=== PATIENT | male | born 1955 | race Caucasian/White ===

== ENCOUNTER 2019-11-11 17:15 | Emergency (ER) | payer OTHER, SELFPAY ==
--- NOTE | 2019-11-11 17:16 | XRR_ITS ---
PROCEDURE INFORMATION: Exam: XR Chest, 1 View Exam date and time: 11/11/2019 8:51 PM Age: 64 years old Clinical indication: Cough TECHNIQUE: Imaging protocol: XR of the chest Views: 1 view. COMPARISON: No relevant prior studies available. FINDINGS: Lungs: The lungs are clear bilaterally. Pulmonary vasculature within normal limits. Pleural space: No visible pneumothorax or pleural effusion. Heart/Mediastinum: Heart size within normal limits. Thoracic aorta is mildly tortuous. Bones/joints: No emergent findings identified. XR/XR chest 1V portable [id number] IMPRESSION: 1. No radiographic findings of acute cardiopulmonary disease.
[2019-11-11 18:13] VITALS: BP 164/93; PULSE 79; RESP 16; TEMP 36.7; O2SAT 96; BMI 35.6
--- NOTE | 2019-11-11 21:01 | ED_ITS ---
HPI - URI/Sore Throat General: Chief Complaint: Upper Respiratory Infection Stated Complaint: COVID SYMPTOMS Time Seen by Provider: 11/11/19 20:33 Source: patient Mode of arrival: ambulatory Limitations: no limitations History of Present Illness: HPI Narrative: [place] is a very nice 64-year-old male who comes in complaining of chest congestion, loss of sense of taste, loss of sense of smell and productive cough. States his cough is productive of discolored sputum. He denies any fevers or chills. He denies any chest pain or nausea or vomiting. Patient states he is not had any known covert exposures. He denies any abdominal pain or chest pain. He is unaware of anything that makes his symptoms better or worse and he has not tried anything for this prior to arrival here. Associated symptoms: Deny abdominal pain, chills, chest pain, diarrhea, ear or mastoid pain, fever(s), headache(s), nausea or vomiting Review of Systems Const: Denies: fever(s), chills, body aches, fatigue, malaise or diaphoresis Eyes: Denies: change in vision, blurry vision, photophobia, eye discomfort, eye discharge, eye redness or yellow eyes ENMT: Reports: nasal discharge; Denies: throat pain, odynophagia, hoarseness, swelling of lips/tongue, ear or mastoid pain, ear discharge or change in hearing Card: Denies: chest pain, palpitations, irregular heart rhythm, edema, lightheadedness, syncope, pre-syncope, dyspnea on exertion or orthopnea Resp: Reports: change in phlegm color; Denies: dyspnea, productive cough, non-productive cough, wheezing, hemoptysis or chest congestion GI: Denies: abdominal pain, nausea, vomiting, hematemesis, coffee ground emesis, heartburn, diarrhea, constipation, GI cramping, hematochezia or melena : Denies: flank pain, dysuria, urinary frequency, urinary urgency or hematuria Musc: Denies: neck pain, back pain, extremity pain, extremity swelling, joint pain, joint swelling, joint redness, joint warmth or joint stiffness Skin/Breast: Denies: rash, pruritus, erythema, skin pain or skin tenderness Neuro: Denies: headache(s), numbness in extremities, weakness in extremities, sensory changes, lack of coordination, difficulty walking, dizziness, vertigo, confusion, Slurred speech present or seizure-like activity Luis Manuel/Lymph: Denies: easy bruising, easy bleeding, petechiae, purpura or enlarged lymph nodes All/Imm: Denies: urticaria, throat swelling, tongue swelling, facial swelling or acute wheezing PFSH ED PFSH: Medical History Atrial fibrillation Diabetes HTN (hypertension) Obesity (BMI 35.0-39.9 without comorbidity) KINSEY on CPAP Presence of Watchman left atrial appendage closure device Surgical History H/O breast surgery Previous back surgery S/P hip replacement 2019 S/P prostatectomy S/P wrist surgery Status post catheter ablation of atrial fibrillation Family History Other Diabetes Hypertension Denies family history of Stroke Social History Smoking and tobacco status: former smoker Quit status (tobacco): has quit using tobacco Year quit tobacco: 20 years prior Alcohol intake: current Alcohol intake frequency: holidays/special occasions only Substance/Drug Use: never Physical Exam Const: COMMON NORMALS: no acute distress, patient oriented x3, no limitations and alert GENERAL APPEARANCE: cooperative HENMT: COMMON NORMALS: normocephalic, atraumatic, external ears normal, EAC's normal and Normal external nose present HEAD & SCALP: normal to inspection, normocephalic and atraumatic FACE & SINUS: normal facial exam and face symme tric NOSE: Normal external nose present and Normal nares present EXTERNAL EAR: Yes external ears normal EXTERNAL AUDITORY CANAL: EAC's normal MOUTH: Normal oral and palatal mucosa present, lip normal and tongue normal Eye: COMMON NORMALS: Equal, round and reactive pupils present and conjunctivae normal GENERAL EYE: appearance normal, both eyes and all related structures ALIGNMENT: Yes alignment normal PERIORBITAL: periorbital findings normal EYELID: eyelids normal CONJUNCTIVA: Yes conjunctivae normal SCLERA: sclerae normal PUPIL: Yes Equal, round and reactive pupils present Neck/C-Spine: COMMON NORMALS: full ROM, no lymphadenopathy, supple, no meningeal signs and no JVD GENERAL: Yes normal visual inspection and Yes trachea midline Chest: COMMONS NORMALS: normal inspection of the chest and normal palpation of entire chest wall Resp: COMMON NORMALS: normal respiratory effort, No retractions, No use of acc essory muscles and clear to auscultation bilaterally EFFORT & INSPECTION: Yes able to speak in complete sentences and Yes symmetric chest movement AUSCULTATION: clear to auscultation bilaterally, no crackles, no rales, no rhonchi and no wheezes Cardio: COMMON NORMALS: no JVD, regular rate, regular rhythm, S1 normal heart sound present and S2 normal heart sound present RATE: regular rate RHYTHM: regular rhythm HEART SOUNDS: S1 normal heart sound present, S2 normal heart sound present, no click, no gallops, no murmurs and no rubs GI: COMMON NORMALS: Soft to palpation and No hepatosplenomegaly present PALPATION: Yes Soft to palpation, No Tenderness to palpation present (GI), No Guarding due to palpation present (GI), No Rigid due to palpation, Yes No hepa tosplenomegaly present, No Hernia present, No Palpable mass present and No Pulsatile mass present : COMMON NORMALS: Yes no CVA tenderness BLADDER/KIDNEY EXAM: Yes no CVA tenderness Back/Pelvis: COMMON NORMALS: no CVA tenderness, thoracic and lumbar spine normal to inspection, no thoracic nor lumbar tenderness and thoraco-lumbar ROM normal Extremity: COMMON NORMALS: normal to inspection, full ROM, capillary refill normal, no joint enlargement, no clubbing, cyanosis or edema and no calf tenderness Neuro: COMMON NORMALS: patient oriented x3, CN's II-XII intact bilaterally, moves all extremities, no focal motor deficits and no sensory deficits noted SENSORIUM/ORIENTATION: Yes alert MENINGEAL SIGNS: Yes no meningeal signs SPEECH: speech normal Psych: COMMON NORMALS: mental status grossly normal, Normal thought process present, cooperative, normal affect, speech normal and activity/motor behavior normal SPEECH: Yes normal speech THOUGHT PROCESS: Normal thought process present Skin: COMMON NORMALS: no rashes or lesions noted, turgor normal, no jaundice, no petechiae and no mottling GENERAL SKIN EXAM: no rashes or lesions noted and turgor normal Course Vital Signs: Vital signs: Vital Signs Temperature 98.1 F 11/11/19 18:13 Pulse Rate 79 11/11/19 18:13 Respiratory Rate 16 11/11/19 18:13 Blood Pressure 164/93 11/11/19 18:13 Pulse Oximetry 96 11/11/19 18:13 MDM - URI/Sore Throat MDM Narrative: Medical decision making narrative: Patient shows no sign or symptom of pneumonia here. He does have signs and symptoms consistent with COVID. He appears otherwise healthy and wants to go home. I will place him on antibiotics for bronchitis and a covert test was sent. He understands for reasons to return. I discussed with him at length that increasing shortness of breath, low pulse ox and he will get a pulse oximeter before going home that he will need to return here for recheck. Imaging Data^: CXR: Attestation: I personally reviewed and interpreted this imaging study as follows: My impression: No acute cardiopulmonary findings. Discharge Plan Discharge Patient Disposition: Home Clinical Impression: Viral infection, Bronchitis Upper respiratory infection Qualifiers: URI type: unspecified viral URI Qualified Code(s): J06.9 - Acute upper respiratory infection, unspecified Condition: Stable Prescriptions: New Zithromax Z-Arturo 250 mg tablet See Rx Instructions .ROUTE .COMPLEX Qty: 6 RF: 0 Zofran 4 mg tablet 4 mg PO Q6H PRN (Reason: nausea and vomiting) Qty: 20 RF: 0 Tessalon Perles 100 mg capsule 200 mg PO TID PRN (Reason: cough) Qty: 60 RF: 0 No Action multivitamin Tablet 1 tab PO DAILY RF: 0 carvedilol 25 mg tablet 12.5 mg PO BID RF: 0 chlorthalidone 25 mg tablet 25 mg PO DAILY RF: 0 aspirin [Aspir-81] 81 mg tablet,delayed release (DR/EC) 81 mg PO DAILY RF: 0 citalopram 20 mg tablet 20 mg PO DAILY RF: 0 metformin 1,000 mg tablet 1,000 mg PO BID RF: 0 candesartan 32 mg tablet 32 mg PO DAILY RF: 0 diltiazem HCl [Matzim LA] 360 mg tablet extended release 24 hr 360 mg PO DAILY RF: 0 rosuvastatin 40 mg tablet 40 mg PO DAILY RF: 0 zinc gluconate PO RF: 0 Discharge Orders: Discharge Order (Routine); Ordered 11/11/19 Ordered By: Liudmila Villegas Referrals: Jonny Bermudez MD [Physician] - 1-3 days Discharge Diet: Advance as tolerated Discharge Activity: Increase activity as tolerated Patient Instructions: Acute Bronchitis (ED), Viral Syndrome (ED) Activity Restrictions/Additional Instructions: Please return to the ER immediately for any of the signs or symptoms listed on your discharge instruction sheets, worsening/changing of your symptoms, you are not getting better as quickly as expected, or for ANY other cause or concerns. Keep yourself at home away from others and quarantine yourself until we inform you of your COVID test results. He will get further instruction at that time if your COVID positive. Take the antibiotics and cough medicines as I have given you. Return to the ER for worsening of your symptoms or for any other cause for concern. Discharge Date/Time: 11/11/19 21:23 Coding Level of Care Code ED Imag[employer] Intelligence for Mario Fwoly Exam Comprehensive
[2019-11-11] MEDS: azithromycin 250 mg Tablet 500 MG PO (21:07)
[2019-11-11] MEDS: dexamethasone 4 mg Tablet 10 MG PO (21:07)
[2019-11-13 21:17] LABS: Quest SARS-CoV-2 RNA NOT DETECTED (NOT DETECTED)
--- NOTE | 2019-11-14 08:17 | PC.NURSE ---
Pt called for results of COVID test, given results.
== END 2019-11-11 21:23 | disposition home or self-care (01) ==
PROVIDERS: Emergency Provider Emergency Medicine
DX: J06.9 Acute upper respiratory infection, unspecified (principal); J20.8 Acute bronchitis due to other specified organisms; Z79.82 Long term (current) use of aspirin; Z79.84 Long term (current) use of oral hypoglycemic drugs; I48.91 Unspecified atrial fibrillation; E11.9 Type 2 diabetes mellitus without complications; I10 Essential (primary) hypertension; Z87.891 Personal history of nicotine dependence
CPT/HCPCS: 12345; 71045; 87635; 99282; 99283; J8540; Q0144

== ENCOUNTER → 2019-12-18 08:34 | Outpatient (BNVA) | payer OTHER, SELFPAY | PROVIDERS: Visit Provider Psychiatry & Neurology Psychiatry | DX: F33.1 Major depressive disorder, recurrent, moderate (principal) | CPT/HCPCS: 99204 ==

== ENCOUNTER → 2020-02-10 08:03 | Outpatient (BNVA) | payer OTHER, SELFPAY | PROVIDERS: PCP Nurse Practitioner Family; Visit Provider Psychiatry & Neurology Psychiatry | DX: F33.1 Major depressive disorder, recurrent, moderate (principal) | CPT/HCPCS: 99213 ==

== ENCOUNTER → 2020-05-11 08:31 | Outpatient (BNVA) | payer OTHER, SELFPAY | PROVIDERS: PCP Nurse Practitioner Family; Visit Provider Psychiatry & Neurology Psychiatry | DX: F33.1 Major depressive disorder, recurrent, moderate (principal) | CPT/HCPCS: 99213 ==

== ENCOUNTER → 2021-01-24 08:59 | Outpatient (BNVA) | payer OTHER, SELFPAY | PROVIDERS: PCP Nurse Practitioner Family; Visit Provider Internal Medicine Cardiovascular Disease | DX: I48.91 Unspecified atrial fibrillation (principal); I10 Essential (primary) hypertension; E11.9 Type 2 diabetes mellitus without complications | CPT/HCPCS: 80053; 80061; 84443; 85025 ==

== ENCOUNTER 2021-03-18 01:31 | Emergency (ER) | payer OTHER, SELFPAY ==
--- NOTE | 2021-03-18 01:32 | XRR_ITS ---
PROCEDURE INFORMATION: Exam: XR Left Hip Exam date and time: 03/18/2021 1:32 AM Age: 65 years old Clinical indication: Injury or trauma; Fall; Blunt trauma (contusions or hematomas); Patient HX: Patient missed a step near bottom of stairs at home and fell. C/O left hip pain. TECHNIQUE: Imaging protocol: XR Left hip. Views: 2 or 3 views hip with pelvis when performed. COMPARISON: No relevant prior studies available. FINDINGS: Bones/joints: No acute fracture or dislocation. Soft tissues: Unremarkable. XR/XR hip LT 2-3V wo/w pel* [id number] IMPRESSION: No acute fracture or dislocation.
--- NOTE | 2021-03-18 01:32 | XRR_ITS ---
PROCEDURE INFORMATION: Exam: XR Left Knee Exam date and time: 03/18/2021 1:32 AM Age: 65 years old Clinical indication: Injury or trauma; Fall; Blunt trauma; Left; Patient HX: Patient fell near bottom of stairs. C/O knee pain, worst so on lateral side of knee. TECHNIQUE: Imaging protocol: XR Left knee. Views: 3 views. COMPARISON: No relevant prior studies available. FINDINGS: Bones/joints: Severe medial compartment joint space narrowing with joint line osteophyte formation. No acute fracture or dislocation. Soft tissues: Normal. XR/XR knee LT 3V* [id number] IMPRESSION: 1. No acute fracture or dislocation. 2. Severe medial compartment osteoarthritis.
[2021-03-18 01:44] VITALS: BP 117/87; PULSE 98; RESP 18; TEMP 36.4; O2SAT 92
--- NOTE | 2021-03-18 01:49 | W.ED.FALL ---
HPI - Fall General: Chief Complaint: Fall Stated Complaint: Injury Fell down Stairs Left Knee & hip Time Seen by Provider: 03/18/21 01:35 Source: patient Mode of arrival: ambulatory Limitations: no limitations History of Present Illness: 65-year-old male states that he was walking down his stairs at 6 PM tonight and fell down the last 3 sailors. He states he fell onto his left side and twisted his left knee and fell on it. He states since then he has been having severe knee pain and some hip pain. He states he been able to ambulate but it is painful to ambulate. He rates his pain a 7 out of 10 currently. Denies hitting his head denies any neck pain. States his pain is much worse with walking improved with rest. Associated symptoms-after fall: Denies abdominal pain, chest pain or headache(s) Review of Systems Const: Denies: fever(s), chills, body aches or change in appetite Eyes: Denies: blurry vision or eye discomfort ENMT: Denies: throat pain or dental pain Card: Denies: chest pain Resp: Denies: dyspnea GI: Denies: abdominal pain, nausea, vomiting or diarrhea : Denies: dysuria Musc: Reports: extremity pain Skin/Breast: Denies: rash Neuro: Denies: headache(s) Psych: Denies: depression Luis Manuel/Lymph: Denies: easy bruising All/Imm: Denies: urticaria PFSH ED PFSH: Medical History Atrial fibrillation Diabetes HTN (hypertension) Obesity (BMI 35.0-39.9 without comorbidity) KINSEY on CPAP Presence of Watchman left atrial appendage closure device Psychiatric care Surgical History H/O breast surgery Previous back surgery S/P hip replacement 2019 S/P prostatectomy S/P wrist surgery Status post catheter ablation of atrial fibrillation Family History Other Diabetes Hypertension Denies family history of Stroke Social History Smoking and tobacco status: former smoker (quit 20 years ago) Quit status (tobacco): has quit using tobacco Year quit tobacco: 20 years prior Second hand smoke exposure: No Alcohol intake: current Alcohol intake frequency: holidays/special occasions only Current gender identity: Male Physical Exam Const: COMMON NORMALS: no acute distress, patient oriented x3 and healthy appearing HENMT: COMMON NORMALS: normocephalic and atraumatic HEAD & SCALP: normocephalic and atraumatic Eye: COMMON NORMALS: Equal, round and reactive pupils present and EOMs intact bilaterally PUPIL: Yes Equal, round and reactive pupils present Neck/C-Spine: COMMON NORMALS: full ROM and supple Chest: COMMONS NORMALS: normal inspection of the chest and normal palpation of entire chest wall Resp: COMMON NORMALS: normal respiratory effort, No retractions, No use of accessory muscles and clear to auscultation bilaterally AUSCULTATION: clear to auscultation bilaterally Cardio: COMMON NORMALS: regular rate, regular rhythm and No murmurs present (Cardio) RATE: regular rate RHYTHM: regular rhythm GI: COMMON NORMALS: Normal to inspection, nondistended, normoactive bowel sounds present, Soft to palpation, non-tender and no masses PALPATION: Yes Soft to palpation Extremity: COMMON NORMALS: normal to inspection NARRATIVE EXTREMITY EXAM: Very slight tenderness to left hip able to move that hip with some pain does have tenderness over the lateral portion of his knee and pain with any movement of that knee. Distal pulses intact Neuro: COMMON NORMALS: patient oriented x3, moves all extremities and no focal motor deficits Psych: COMMON NORMALS: mental status grossly normal, Normal thought process present and cooperative THOUGHT PROCESS: Normal thought process present Skin: COMMON NORMALS: no rashes or lesions noted and no wounds GENERAL SKIN EXAM: no rashes or lesions noted Course Vital Signs: Vital signs: Vital Signs Temperature 97.5 F L 03/18/21 01:44 Pulse Rate 84 03/18/21 03:08 Respiratory Rate 20 H 03/18/21 03:08 Blood Pressure 114/86 03/18/21 03:08 Pulse Oximetry 94 03/18/21 03:08 MDM - Fall Medical Decision Making Patient presents here with knee sprain hip contusion from a fall patient's imaging here is all normal patient placed in knee immobilizer and crutches he is to follow-up with orthopedics he is return if worsening understands agrees to plan. Lab Data Radiology Impressions Hip/Pelvis X-Ray 03/18/21 01:32 IMPRESSION: No acute fracture or dislocation. Knee X-Ray 03/18/21 01:32 IMPRESSION: 1. No acute fracture or dislocation. 2. Severe medial compartment osteoarthritis. Hip CT 03/18/21 02:08 IMPRESSION: 1. No acute fracture or dislocation. 2. Diverticulosis without diverticulitis. 3. Soft tissue bruising in the region of the left buttocks. Knee CT 03/18/21 02:08 IMPRESSION: 1. No acute fracture or dislocation. 2. Severe medial compartment osteoarthritis. 3. Small joint effusion. Discharge Plan Discharge Patient Disposition: Home Clinical Impression: Left knee sprain Qualifiers: Encounter type: initial encounter Involved ligament of knee: unspecified ligament Qualified Code(s): S83.92XA - Sprain of unspecified site of left knee, initial encounter Condition: Stable Prescriptions: New hydrocodone-acetaminophen 5-325 mg tablet 1 tab PO Q6H PRN (Reason: pain) Qty: 14 0RF No Action multivitamin Tablet 1 tab PO DAILY 0RF aspirin [Aspir-81] 81 mg tablet,delayed release (DR/EC) 81 mg PO DAILY 0RF metformin 1,000 mg tablet 1,000 mg PO BID 0RF rosuvastatin 40 mg tablet 40 mg PO DAILY 0RF candesartan 32 mg tablet 32 mg PO DAILY Qty: 90 2RF citalopram [Celexa] 40 mg tablet 40 mg PO DAILY Qty: 30 2RF trazodone 50 mg tablet 100 mg PO .HS Qty: 60 2RF prazosin 5 mg capsule 5 mg PO .HS Qty: 30 2RF carvedilol 25 mg tablet 12.5 mg PO BID Qty: 60 2RF Rx Instructions: must administer with a meal/food carvedilol [Coreg] 6.25 mg tablet 6.25 mg PO .every morning Qty: 90 2RF Rx Instructions: must administer with a meal/food (Take with coreg 12.5 mg in morning) diltiazem HCl [Matzim LA] 360 mg tablet extended release 24 hr 360 mg PO DAILY Qty: 90 3RF chlorthalidone 25 mg tablet 25 mg PO DAILY Qty: 90 1RF Discharge Orders: Discharge ED (Routine); Ordered 03/18/21 Ordered By: Lily Fernandez Referrals: Dillan Salazar DO [Physician] - 1-3 days Josi,Dunia, [employer] SUPPORT MANAGER [Primary Care Provider] - Discharge Diet: Advance as tolerated Discharge Activity: Resume usual activity Patient Instructions: Knee Sprain (ED), Opioid Safety Coding Level of Care Code ED Sequins Slinger for Chg Fwd Exam Comprehensive
--- NOTE | 2021-03-18 02:08 | CTR_ITS ---
PROCEDURE INFORMATION: Exam: CT Left Lower Extremity Without Contrast, Hip Exam date and time: 03/18/2021 2:08 AM Age: 65 years old Clinical indication: Injury or trauma; Fall; Blunt trauma; Patient HX: Patient fell near bottom of stairs at home. C/O left knee and hip pain. Worsening pain with bearing weight. TECHNIQUE: Imaging protocol: CT of the Left lower extremity without contrast was performed. Exam focused on the hip. Radiation optimization: All CT scans at this facility use at least one of these dose optimization techniques: automated exposure control; mA and/or kV adjustment per patient size (includes targeted exams where dose is matched to clinical indication); or iterative reconstruction. COMPARISON: CR (PELVIS, ) 03/18/2021 1:42 AM RADIATION DOSE METRICS: Total DLP (mGy-cm): 443.47 FINDINGS: Bones/joints: No acute fracture or dislocation. Soft tissues: Soft tissue bruising in the region of the left buttocks. Bowel: Diverticulosis without diverticulitis. CT/CT hip LT wo con* [id number] IMPRESSION: 1. No acute fracture or dislocation. 2. Diverticulosis without diverticulitis. 3. Soft tissue bruising in the region of the left buttocks.
--- NOTE | 2021-03-18 02:08 | CTR_ITS ---
PROCEDURE INFORMATION: Exam: CT Left Lower Extremity Without Contrast, Knee Exam date and time: 03/18/2021 2:08 AM Age: 65 years old Clinical indication: Injury or trauma; Fall; Blunt trauma; Patient HX: Patient fell near bottom of stairs at home. C/O left knee and hip pain. Worsening pain with bearing weight. TECHNIQUE: Imaging protocol: CT of the Left lower extremity without contrast was performed. Exam focused on the knee. Radiation optimization: All CT scans at this facility use at least one of these dose optimization techniques: automated exposure control; mA and/or kV adjustment per patient size (includes targeted exams where dose is matched to clinical indication); or iterative reconstruction. COMPARISON: CT hip LT wo con* [id number] 03/18/2021 2:20 AM RADIATION DOSE METRICS: Total DLP (mGy-cm): 1109.3 FINDINGS: Bones/joints: Severe medial compartment joint space narrowing with joint line osteophyte formation. No acute fracture or dislocation. Small joint effusion. Soft tissues: Normal. CT/CT knee LT wo con* [id number] IMPRESSION: 1. No acute fracture or dislocation. 2. Severe medial compartment osteoarthritis. 3. Small joint effusion.
[2021-03-18] MEDS: HYDROcodone-acetaminophen 7.5-325 mg Tablet 1 TAB PO (02:11)
[2021-03-18 03:08] VITALS: BP 114/86; PULSE 84; RESP 20; O2SAT 94
--- NOTE | 2021-03-18 11:29 | DCPLANNER ---
Addendum entered by Jacinda Domingo 04/01/21 22:25: Patient had a follow up appointment scheduled for 03.22.[address] Yoder at ortho - patient did attend appointment. Original Note: [employer] manager had message to schedule a follow up appointment for patient with ortho. [employer] manager called the ortho clinic, spoke with Susan, gave clinic patients information. [employer] manager was told that patients information would be printed and reviewed. Clinic will call patient with appointment information.
== END 2021-03-18 03:34 | disposition home or self-care (01) ==
PROVIDERS: Emergency Provider Emergency Medicine; PCP Nurse Practitioner Family
DX: S83.92XA Sprain of unspecified site of left knee, initial encounter (principal); Z79.82 Long term (current) use of aspirin; Z79.84 Long term (current) use of oral hypoglycemic drugs; E11.9 Type 2 diabetes mellitus without complications; I10 Essential (primary) hypertension; Z87.891 Personal history of nicotine dependence; X50.1XXA Overexertion from prolonged static or awkward postures, initial encounter
CPT/HCPCS: 29530; 73502; 73562; 73700; 99283

== ENCOUNTER 2021-04-15 07:41 | Outpatient (CLI) | payer SELFPAY ==
--- NOTE | 2021-04-15 07:45 | USCV_ITS ---
Dallas Calero Age: 65 Gender: M : 1955 Exam Date: 04/15/2021 07:52 Ordering Phys: Elaine Clark MD ([email or web address]) Technologist: Jhonatan Manning [place] [facility] [place]: Shortness of breath BP: 132 / 70 HR: 53 Rhythm: Sinus Technical Quality: Adequate MEASUREMENTS (Male / Female) Normal Values 2D ECHO LV Diastolic Diameter PLAX 4.4 cm 4.2 - 5.9 / 3.9 - 5.3 cm LV Systolic Diameter PLAX 2.8 cm IVS Diastolic Thickness 0.7 cm 0.6 - 1.0 / 0.6 - 0.9 cm IVS Systolic Thickness 1.3 cm LVPW Diastolic Thickness 1.3 cm 0.6 - 1.0 / 0.6 - 0.9 cm LVPW Systolic Thickness 1.5 cm LVOT Diameter 2.0 cm LV Ejection Fraction 2D Teich 64.7 % LV Ejection Fraction MOD 2C 56.2 % LV Ejection Fraction 2C AL 57.5 % LA Diameter 3.4 cm LA Width 4.1 cm LA Height 5.1 cm RA Width 3.6 cm RA Height 4.5 cm Aorta at Sinotubular Diameter 3.2 cm M-MODE Aortic Annulus Diameter 3.5 cm LA Ao Ratio MM 0.9 MV E Point Septal Separation 0.7 cm DOPPLER AV Peak Velocity 104.0 cm/s LVOT Peak Velocity 98.0 cm/s AV Area Cont Eq vti 3.0 cm squared AV Area Cont Eq pk 3.1 cm squared MV Area PHT 5.0 cm squared Mitral E to A Ratio 1.8 MV E' Velocity 93.0 cm/s Mitral E to LV E' Septal Ratio 8.1 TR Peak Velocity 275.8 cm/s TR Peak Gradient 30.4 mmHg TR Mean Velocity 195.6 cm/s TR Mean Gradient 16.2 mmHg TR Velocity Time Integral 79.9 cm Right Atrial Pressure 3.0 mmHg Pulmonary Artery Systolic Pressu 33.4 mmHg RV Acceleration Time 0.2 s RV Ejection Time 0.3 s RV AcT/ET 0.6 FINDINGS Left Ventricle Normal left ventricular size, systolic function and wall thickness, with no diagnostic regional wall motion abnormalities. Left ventricular ejection fraction is estimated at 60-65 %. Grade II diastolic dysfunction, moderately elevated filling pressures. Right Ventricle Normal right ventricular size and systolic function. Right ventricular systolic pressure 38 mmHg. Right Atrium Normal right atrial size. Right atrial pressure estimated at 3 mm Hg. Left Atrium Mildly increased left atrial size. Mitral Valve Structurally normal mitral valve. No mitral valve stenosis. Trace mitral valve regurgitation. Aortic Valve Structurally normal trileaflet aortic valve. No aortic valve stenosis. No aortic valve regurgitation. Tricuspid Valve Structurally normal tricuspid valve. No tricuspid valve stenosis. Trace tricuspid valve regurgitation. Pulmonic Valve No pulmonary valve stenosis. Trace pulmonary valve regurgitation. Pericardium No pericardial effusion. Aorta Normal size aortic root and proximal ascending aorta. Normal sized inferior vena cava. CONCLUSIONS 1. Normal left ventricular size, systolic function and wall thickness, with no diagnostic regional wall motion abnormalities. Left ventricular ejection fraction is estimated at 60-65 %. Grade II diastolic dysfunction, moderately elevated filling pressures. 2. Mildly increased left atrial size. 3. Mild pulmonary artery hypertension with pulmonary artery pressure estimated at 38 mm Hg. 4. Trace mitral valve regurgitation. 5. No prior similar studies to compare. Elaine Clark MD (Electronically Signed) Final Date: 24 April 2021 11:01 S
== END 2021-04-15 07:42 | disposition home or self-care (01) ==
LOC: RAD 07:42
PROVIDERS: PCP Nurse Practitioner Family; Visit Provider Internal Medicine Cardiovascular Disease
DX: R06.02 Shortness of breath (principal); R00.2 Palpitations; I27.20 Pulmonary hypertension, unspecified; I34.0 Nonrheumatic mitral (valve) insufficiency
CPT/HCPCS: 93306

== ENCOUNTER 2022-11-16 09:43 | Outpatient (CLI) | payer MEDICARE, SELFPAY | END 2022-11-16 09:44 | disposition home or self-care (01) | LOC: RT 09:46 | PROVIDERS: PCP Nurse Practitioner Family; Visit Provider Specialist | DX: R05.3 Chronic cough (principal) | CPT/HCPCS: 94010 ==

== ENCOUNTER 2023-05-11 20:31 | Emergency (ER) | payer MEDICARE, SELFPAY ==
[2023-05-11 20:34] VITALS: PULSE 79; RESP 20; TEMP 36.6; O2SAT 94; BMI 34.9
--- NOTE | 2023-05-11 20:34 | ECG_ITS ---
[facility] Test Date: 2023-05-11 Pat Name: Dallas Calero Department: Room: Gender: Male Cell Tuber Hand: : 1955 Requested By: Rik Thomas Order Number: [id number] Luiza MD: Warner Foley M.D. Measurements Intervals [place] Rate: 112 P: 0 CT: 0 QRS: -27 QRSD: 110 T: 66 QT: 325 QTc: 445 Interpretive Statements ATRIAL FIBRILLATION WITH RAPID VENTRICULAR RESPONSE BORDERLINE LEFT AXIS DEVIATION [QRS AXIS < -20] MODERATE VOLTAGE CRITERIA FOR LVH, CONSIDER NORMAL VARIANT [MEETS CRITERIA IN ONE OF: R(aVL), S(V1), R(V5), R(V5/V6)+S(V1)] NONSPECIFIC ST & T-WAVE ABNORMALITY No previous ECG available for comparison Electronically Signed On 05-13-2023 11:12:41 CDT by Warner Foley M.D. [id number]
--- NOTE | 2023-05-11 20:34 | XRR_ITS ---
PROCEDURE INFORMATION: Exam: XR Chest Exam date and time: 05/11/2023 8:45 PM Age: 67 years old Clinical indication: Chest pressure; Prior surgery; Surgery date: 6+ months; Surgery type: Cardiac ablation. Watchman; Patient HX: C/O chest pain with afib. TECHNIQUE: Imaging protocol: Radiologic exam of the chest. Views: 1 view. COMPARISON: CR XR chest 2V* [id number] 10/12/2022 7:28 AM FINDINGS: Lungs: Moderate lung expansion. Subtle bibasilar opacities, left greater than right. Pleural spaces: No pleural effusion. No pneumothorax. Heart/Mediastinum: Increased conspicuity of the cardiomediastinal silhouette. Bones/joints: No acute osseous abnormality. XR/XR chest 1V portable [id number] IMPRESSION: 1. Increased conspicuity of the cardiomediastinal silhouette may be related to portable imaging technique and elevated intravascular volume. 2. Subtle bibasilar opacities may be related atelectasis given suboptimal lung expansion.
--- NOTE | 2023-05-11 20:35 | ECG_ITS ---
[facility] Test Date: 2023-05-11 Pat Name: Dallas Calero Department: Room: Gender: Male Soaker: : 1955 Requested By: Rik Thomas Order Number: [id number] Luiza MD: Warner Foley M.D. Measurements Intervals [place] Rate: 147 P: 0 PA: 0 QRS: -22 QRSD: 96 T: 144 QT: 297 QTc: 465 Interpretive Statements ATRIAL FIBRILLATION WITH RAPID VENTRICULAR RESPONSE BORDERLINE LEFT AXIS DEVIATION [QRS AXIS < -20] MODERATE VOLTAGE CRITERIA FOR LVH, CONSIDER NORMAL VARIANT [MEETS CRITERIA IN ONE OF: R(aVL), S(V1), R(V5), R(V5/V6)+S(V1)] ST DEVIATION AND MODERATE T-WAVE ABNORMALITY, CONSIDER LATERAL ISCHEMIA [-0.1+ mV T-WAVE IN I/aVL/V5/V6] No previous ECG available for comparison Electronically Signed On 05-13-2023 11:21:58 CDT by Warner Foley M.D. [id number]
--- NOTE | 2023-05-11 20:44 | ED_ITS ---
HPI - Arrhythmia/Palpitations 2 General: Chief Complaint: Arrhythmia/Palpitations Stated Complaint: A Fib\Pressure Time Seen by Provider: 05/11/23 20:35 History of Present Illness: Patient presents to the ER with complaints of elevated heart rate. Patient says that he was at rest and just darted to have A-fib. He does have a history of A- fib and should be on Cardizem 360 mg daily and carvedilol 25 mg twice daily however he has not had an episode of A-fib in a long time and therefore he stopped taking his Cardizem. Patient does have mild shortness of breath and chest pressure. Patient has not seen a composite bond technician since his last appointment with Dr. Clark in January 2022 Review of Systems 2 General: Reports: 10 or more systems reviewed and unremarkable except in HPI and below PFSH ED 2 PFSH: Medical History Trauma and stressor-related disorder Major depressive disorder, recurrent, moderate Presence of Watchman left atrial appendage closure device Obesity (BMI 35.0-39.9 without comorbidity) KINSEY on CPAP Diabetes HTN (hypertension) Atrial fibrillation Surgical History H/O breast surgery Previous back surgery Status post catheter ablation of atrial fibrillation S/P hip replacement 2018 S/P prostatectomy S/P wrist surgery Family History Other Diabetes Hypertension Denies family history of Stroke Social History Smoking and tobacco/nicotine status: former use of tobacco/nicotine (quit 20 years ago) Quit status (tobacco/nicotine): has quit using Year quit tobacco: 20 years prior Second hand smoke exposure: No Alcohol intake: current Alcohol intake frequency: holidays/special occasions only Substance/Drug Use: never Current gender identity: Male Physical Exam 2 Const: COMMON NORMALS: no acute distress, average body habitus, patient oriented x3, no limitations, healthy appearing, alert and well nourished HENMT: COMMON NORMALS: normocephalic, atraumatic, hearing grossly normal bilaterally, external ears normal, Normal external nose present, moist oral mucous membranes and oropharynx normal HEAD & SCALP: normocephalic and atraumatic NOSE: Normal external nose present EXTERNAL EAR: Yes external ears normal Eye: COMMON NORMALS: Equal, round and reactive pupils present, EOMs intact bilaterally, conjunctivae normal and no scleral icterus CONJUNCTIVA: Yes conjunctivae normal PUPIL: Yes Equal, round and reactive pupils present Neck/C-Spine: COMMON NORMALS: full ROM, no lymphadenopathy, supple, no meningeal signs, no JVD and Thyroid normal THYROID: Thyroid normal Chest: COMMONS NORMALS: normal inspection of the chest and normal palpation of entire chest wall Resp: COMMON NORMALS: normal respiratory effort, No retractions, No use of accessory muscles and clear to auscultation bilaterally AUSCULTATION: clear to auscultation bilaterally Cardio: COMMON NORMALS: no JVD, No clicks present (Cardio) and No murmurs present (Cardio); negative for regular rate (Tachycardic with irregularly irregular rhythm) and negative for regular rhythm RATE: abnormal rate (Tachycardic with irregularly irregular rhythm) RHYTHM: abnormal rhythm GI: COMMON NORMALS: Normal to inspection, nondistended, normoactive bowel sounds present, Soft to palpation, non-tender, No hepatosplenomegaly present and no masses PALPATION: Yes Soft to palpation and Yes No hepatosplenomegaly present Neuro: COMMON NORMALS: patient oriented x3 SENSORIUM/ORIENTATION: Yes alert MENINGEAL SIGNS: Yes no meningeal signs Course 2 Vital Signs: Vital signs: Vital Signs Temperature 97.9 F 05/11/23 20:34 Pulse Rate 105 H 05/11/23 21:55 Respiratory Rate 21 H 05/11/23 21:55 Blood Pressure 145/73 05/11/23 21:55 Pulse Oximetry 94 05/11/23 21:55 Oxygen Delivery Me thod Room Air 05/11/23 20:58 MDM - Arrhythmia/Palpitations Medical Decision Making Patient presented to the ER with an A-fib with RVR patient was given 20 mg of diltiazem IV push which dropped his heart rate from about 150 down to 120. Patient was started on Cardizem drip and given 30 mg Cardizem orally. This combination helped the patient's maintain a heart rate down in the high 90s. Patient was given the option to come inpatient to continue on a Cardizem drip or go home and continue on the oral Cardizem he has not been taking. Patient chose to go home. A new prescription for diltiazem HCl 360 mg extended release tablets will be sent to the pharmacy here in [facility]. Patient be discharged. Differential Diagnosis Likely artial fibrillation Lab Data I reviewed the patient's lab results. 05/11/23 20:48 05/11/23 20:48 Radiology Impressions Chest X-Ray 05/11/23 20:34 IMPRESSION: 1. Increased conspicuity of the cardiomediastinal silhouette may be related to portable imaging technique and elevated intravascular volume. 2. Subtle bibasilar opacities may be related atelectasis given suboptimal lung expansion. Laboratory Results WBC 8.74 10^3/uL (3.29-11.43) 05/11/23 20:48 RBC 4.88 10^6/uL (3.85-5.65) 05/11/23 20:48 Hgb 14.90 g/dL (11.27-16.99) 05/11/23 20:48 Hct 43.4 % (37-53) 05/11/23 20:48 MCV 88.9 fl (82-101) 05/11/23 20:48 MCH 30.5 pg (27-33) 05/11/23 20:48 MCHC 34.3 g/dL (30-55) 05/11/23 20:48 RDW 13.0 % (12.1-15.1) 05/11/23 20:48 Plt Count 236 10^3/cmm (157-399) 05/11/23 20:48 MPV 9.2 fL (7.4-10.4) 05/11/23 20:48 Neut % (Auto) 60.2 % 05/11/23 20:48 Lymph % (Auto) 28.9 % 05/11/23 20:48 [place] % (Auto) 7.7 % 05/11/23 20:48 Eos % (Auto) 2.2 % 05/11/23 20:48 Baso % (Auto) 0.7 % 05/11/23 20:48 Neut # (Auto) 5.26 10^3/uL (1.8-7.7) 05/11/23 20:48 Lymph # (Auto) 2.5 10^3/uL (0.8-4.8) 05/11/23 20:48 [place] # (Auto) 0.7 10^3/uL (0.2-0.9) 05/11/23 20:48 Eos # (Auto) 0.2 10^3/uL (0.0-0.8) 05/11/23 20:48 Baso # (Auto) 0.1 10^3/uL (0.0-0.1) 05/11/23 20:48 Nucleated RBC % (auto) 0 % 05/11/23 20:48 Nucleated RBCs # 0.0 /100WBC 05/11/23 20:48 Sodium 139 mmol/L (136-145) 05/11/23 20:48 Potassium 4.0 mmol/L (3.5-5.1) 05/11/23 20:48 Chloride 105 mmol/L (98-107) 05/11/23 20:48 Carbon Dioxide 24 mmol/L (22-29) 05/11/23 20:48 Anion Gap 14.0 (5-19) 05/11/23 20:48 BUN 6 mg/dL (8-23) L 05/11/23 20:48 Creatinine 0.9 mg/dL (0.7-1.2) 05/11/23 20:48 GFR Calculation 84.7 mL/min (90-130) L 05/11/23 20:48 Glucose 207 mg/dL (65-115) H 05/11/23 20:48 Calculated Osmolality 292 mOsm/kg (285-295) 05/11/23 20:48 Calcium 9.8 mg/dL (8.5-10.5) 05/11/23 20:48 Total Bilirubin 0.4 mg/dL (0.15-1.2) 05/11/23 20:48 AST 59 U/L (0-40) H 05/11/23 20:48 ALT 53 U/L (0-41) H 05/11/23 20:48 Alkaline Phosphatase 115 U/L (40-130) 05/11/23 20:48 Troponin T Baseline 14 ng/L (0-15) 05/11/23 20:48 Troponin T 120 Minute 17.38 ng/L (0-15) H 05/11/23 23:04 Delta Troponin T 3.38 ABS# (0-10) 05/11/23 23:04 Total Protein 6.8 g/dL (6.6-8.7) 05/11/23 20:48 Albumin 4.3 g/dL (3.5-5.2) 05/11/23 20:48 Globulin 2.5 g/dL (1.3-4.6) 05/11/23 20:48 All radiology interpretation(s) finalized by discharge Discharge Plan Discharge Patient Disposition: Home Clinical Impression: Atrial fibrillation with rapid ventricular response Condition: Stable Prescriptions: New diltiazem HCl 360 mg capsule,extended release 24 hr 360 mg PO DAILY Qty: 30 0RF No Action aspirin [Aspir-81] 81 mg tablet,delayed release (DR/EC) 81 mg PO DAILY metformin 1,000 mg tablet 1,000 mg PO BID rosuvastatin 40 mg tablet 40 mg PO DAILY testosterone cypionate [Depo-Testosterone] 100 mg/mL oil 100 mg SUBCUT Q7D carvedilol 25 mg tablet 25 mg PO BID Qty: 180 3RF aripiprazole [Abilify] 5 mg tablet 5 mg PO DAILY Qty: 30 2RF citalopram [Celexa] 40 mg tablet 40 mg PO DAILY Qty: 30 2RF trazodone 50 mg tablet 100 mg PO .HS PRN (Reason: insomnia) Qty: 60 2RF prazosin 5 mg capsule 5 mg PO .HS Qty: 30 2RF chlorthalidone 25 mg tablet 25 mg PO DAILY Qty: 90 1RF diltiazem HCl [Matzim LA] 360 mg tablet extended release 24 hr 360 mg PO DAILY Qty: 90 3RF Discharge Orders: Discharge ED (Routine); Ordered 05/12/23 Ordered By: Rik Thomas Referrals: Dunia Prater FNP [Primary Care Provider] - 1 week Patient Instructions: Atrial Fibrillation Activity Restrictions/Additional Instructions: Please restart your Cardizem daily. Please take all other medicines as directed. Please increase your aspirin to 325 mg daily. Please follow-up with a composite bond technician of your choice. Otherwise please follow-up with your family practice physician within 7 days for further evaluation testing as needed. Coding Level of Care Code ED Front Window Cashier for Mario Campbell
[2023-05-11 20:49] VITALS: BP 177/112
[2023-05-11] MEDS: dilTIAZem 5 mg/mL SDV 5 mL 20 MG IVP (20:52)
[2023-05-11 20:54] LABS: Basophils # 0.1 10^3/uL (0.0-0.1); Basophils % 0.7 %; Eosinophils # 0.2 10^3/uL (0.0-0.8); Eosinophils % 2.2 %; Hematocrit 43.4 % (37-53); Lymphocytes # 2.5 10^3/uL (0.8-4.8); Lymphocytes % 28.9 %; Mean Corpuscular HGB Conc 34.3 g/dL (30-55); Mean Corpuscular Hemoglobin 30.5 pg (27-33); Mean Corpuscular Volume 88.9 fl (82-101); Mean Platelet Volume 9.2 fL (7.4-10.4); Monocytes # 0.7 10^3/uL (0.2-0.9); Monocytes % 7.7 %; Neutrophils # 5.26 10^3/uL (1.8-7.7); Neutrophils % 60.2 %; Nucleated Red Blood Cells % 0 %; Platelet Count 236 10^3/cmm (157-399); Red Blood Count 4.88 10^6/uL (3.85-5.65); White Blood Count 8.74 10^3/uL (3.29-11.43)
[2023-05-11] MEDS: sodium chloride 0.9% 1,000 ML 999 ML IV (20:55)
[2023-05-11 20:58] VITALS: BP 177/112; PULSE 113; RESP 18; O2SAT 94
[2023-05-11 21:13] LABS: Troponin(5th) Baseline 14 ng/L (0-15)
[2023-05-11 21:15] LABS: Alanine Aminotransferase 53 U/L (0-41); Albumin Level 4.3 g/dL (3.5-5.2); Alkaline Phosphatase 115 U/L (40-130); Blood Urea Nitrogen 6 mg/dL (8-23); Calcium 9.8 mg/dL (8.5-10.5); Carbon Dioxide 24 mmol/L (22-29); Chloride 105 mmol/L (98-107); Creatinine Clr Calc Pharmacy 120.5468; Globulin 2.5 g/dL (1.3-4.6); Glomerular Filtration Rate 84.7 mL/min (90-130); Glucose 207 mg/dL (65-115); Osmolality Calculated 292 mOsm/kg (285-295); Sodium 139 mmol/L (136-145); Total Bilirubin 0.4 mg/dL (0.15-1.2); Total Protein 6.8 g/dL (6.6-8.7)
[2023-05-11 21:19] LABS: Aspartate Amino Transferase 59 U/L (0-40)
[2023-05-11] MEDS: dilTIAZem 30 mg Tablet PO (21:35)
[2023-05-11] MEDS: LORazepam 1 mg Tablet PO (21:44)
[2023-05-11 21:55] VITALS: BP 145/73; PULSE 105; RESP 21; O2SAT 94
[2023-05-11] MEDS: dilTIAZem 100 MG in sodium chloride 0.9% (add-van) 100 ML IV (22:31)
--- NOTE | 2023-05-11 22:34 | ECG_ITS ---
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 Measurements Intervals [place] Rate: 112 P: 0 [place]: 0 QRS: -28 QRSD: 100 T: 72 QT: 313 QTc: 428 Interpretive Statements ATRIAL FIBRILLATION WITH RAPID VENTRICULAR RESPONSE BORDERLINE LEFT AXIS DEVIATION [QRS AXIS < -20] MINIMAL VOLTAGE CRITERIA FOR LVH, CONSIDER NORMAL VARIANT [MEETS CRITERIA IN ONE OF: R(aVL), S(V1), R(V5), R(V5/V6)+S(V1)] NONSPECIFIC ST & T-WAVE ABNORMALITY Compared to ECG 05/11/2023 21:37:00 No significant changes Electronically Signed On 05-13-2023 11:20:55 CDT by Warner Foley M.D. [id number]
[2023-05-11 23:42] LABS: Troponin 5 2HR 17.38 ng/L (0-15); Troponin 5 2HR Delta 3.38 ABS# (0-10)
[2023-05-12 00:39] VITALS: BP 125/74; PULSE 83; RESP 20; O2SAT 94
== END 2023-05-12 00:36 | disposition home or self-care (01) ==
PROVIDERS: Emergency Provider Emergency Medicine; PCP Nurse Practitioner Family
DX: I48.20 Chronic atrial fibrillation, unspecified (principal); Z79.82 Long term (current) use of aspirin; Z79.84 Long term (current) use of oral hypoglycemic drugs; Z87.891 Personal history of nicotine dependence; E11.9 Type 2 diabetes mellitus without complications; I10 Essential (primary) hypertension
CPT/HCPCS: 36415; 71045; 80053; 84484; 85025; 93005; 96361; 96365; 96366; 96375; 99285; J3490; J7030

== ENCOUNTER 2023-09-25 23:22 | Emergency (ER) | payer MEDICARE, SELFPAY ==
[2023-09-25 23:28] VITALS: BP 162/90; PULSE 155; RESP 22; TEMP 36.7; O2SAT 96; BMI 34.9
--- NOTE | 2023-09-25 23:32 | ECG_ITS ---
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 Measurements Intervals [place] Rate: 155 P: 0 NC: 0 QRS: -20 QRSD: 99 T: 89 QT: 293 QTc: 471 Interpretive Statements ATRIAL FIBRILLATION WITH RAPID VENTRICULAR RESPONSE NONSPECIFIC ST & T-WAVE ABNORMALITY CRITICAL TEST RESULT Compared to ECG 05/11/2023 22:33:12 No significant changes Electronically Signed On 09-27-2023 0:14:31 CDT by Wally Cochran M.D. [id number]
--- NOTE | 2023-09-25 23:32 | XRR_ITS ---
PROCEDURE INFORMATION: Exam: XR Chest Exam date and time: 09/26/2023 12:17 AM Age: 67 years old Clinical indication: Pain; Chest pressure; Additional info: Tachycardia TECHNIQUE: Imaging protocol: Radiologic exam of the chest. Views: 1 view. COMPARISON: CR XR chest 1V portable [id number] 05/11/2023 8:45 PM FINDINGS: Lungs: No consolidation. Pleural spaces: No large pleural effusion. No pneumothorax. Heart/Mediastinum: No cardiomegaly. Bones/joints: No acute abnormality. XR/XR chest 1V portable [id number] IMPRESSION: No acute findings.
--- NOTE | 2023-09-25 23:49 | ED_ITS ---
HPI - Arrhythmia/Palpitations 2 General: Chief Complaint: Arrhythmia/Palpitations Stated Complaint: feels like A-fib, SOB Time Seen by Provider: 09/25/23 23:33 History of Present Illness: Patient comes to the ER with complaints of fast heart rate. She has a history of A-fib with RVR. Patient said this been going on for last 30 minutes. Patient is also reporting chest pain shortness of breath and this episode.Upon arrival patient's heart rate 155 beats minute, I saw this patient approximately 4 months ago for similar episode. Patient was increased dose of diltiazem to 360 mg daily. Patient needed but bolus and a drip of Cardizem at that time. Related Data Home Medications Medication Instructions Recorded Confirmed aspirin 81 mg tablet,delayed 81 mg PO DAILY 10/08/19 07/05/21 release (Aspir-) metformin 1,000 mg tablet 1,000 mg PO BID 10/08/19 07/05/21 rosuvastatin 40 mg tablet 40 mg PO DAILY 10/08/19 07/05/21 testosterone cypionate 100 mg/mL 100 mg SUBCUT Q7D 01/09/22 intramuscular oil (Depo-Testosterone) Previous Rx's Medication Instructions Recorded aripiprazole 5 mg tablet (Abilify) 5 mg PO DAILY #30 tabs 07/05/21 citalopram 40 mg tablet (Celexa) 40 mg PO DAILY #30 tabs 07/05/21 prazosin 5 mg capsule 5 mg PO .HS #30 caps 07/05/21 trazodone 50 mg tablet 100 mg (2 x 50 mg) PO .HS PRN 07/05/21 insomnia #60 tabs chlorthalidone 25 mg tablet 25 mg PO DAILY #90 tabs 08/15/21 carvedilol 25 mg tablet 25 mg PO BID #180 tabs 01/09/22 diltiazem HCl 420 mg 420 mg PO DAILY #30 tabs 09/26/23 tablet,extended release 24 hr (Cardizem LA) Allergies Allergy/AdvReac Type Severity Reaction Status Date / Time No Known Allergies Allergy Verified 07/05/21 10:30 Review of Systems 2 General: Reports: 10 or more systems reviewed and unremarkable except in HPI and below PFSH ED 2 PFSH: Medical History Trauma and stressor-related disorder Major depressive disorder, recurrent, moderate Presence of Watchman left atrial appendage closure device Obesity (BMI 35.0-39.9 without comorbidity) KINSEY on CPAP Diabetes HTN (hypertension) Atrial fibrillation Surgical History H/O breast surgery Previous back surgery Status post catheter ablation of atrial fibrillation S/P hip replacement 2019 S/P prostatectomy S/P wrist surgery Family History Other Diabetes Hypertension Denies family history of Stroke Social History Smoking and tobacco/nicotine status: former use of tobacco/nicotine (quit 20 years ago) Quit status (tobacco/nicotine): has quit using Year quit tobacco: 20 years prior Second hand smoke exposure: No Alcohol intake: current Alcohol intake frequency: holidays/special occasions only Substance/Drug Use: never Current gender identity: Male Physical Exam 2 Const: COMMON NORMALS: no acute distress, average body habitus, patient oriented x3, no limitations, healthy appearing, alert and well nourished HENMT: COMMON NORMALS: normocephalic, atraumatic, hearing grossly normal bilaterally, external ears normal, Normal external nose present and moist oral mucous membranes HEAD & SCALP: normocephalic and atraumatic NOSE: Normal external nose present EXTERNAL EAR: Yes external ears normal Neck/C-Spine: COMMON NORMALS: full ROM, no lymphadenopathy, supple, no meningeal signs, no JVD and Thyroid normal THYROID: Thyroid normal Chest: COMMONS NORMALS: normal inspection of the chest and normal palpation of entire chest wall Resp: COMMON NORMALS: normal respiratory effort, No retractions, No use of accessory muscles and clear to auscultation bilaterally AUSCULTATION: clear to auscultation bilaterally Cardio: COMMON NORMALS: no JVD, S1 normal heart sound present, S2 normal heart sound present, No gallops present (Cardio), No clicks present (Cardio) and No murmurs present (Cardio); negative for regular rate (Irregularly irregular tachycardic rhythm) RATE: a bnormal rate (Irregularly irregular tachycardic rhythm) HEART SOUNDS: S1 normal heart sound present and S2 normal heart sound present GI: COMMON NORMALS: Normal to inspection, nondistended, normoactive bowel sounds present, Soft to palpation, non-tender, No hepatosplenomegaly present and no masses PALPATION: Yes Soft to palpation and Yes No hepatosplenomegaly present Neuro: COMMON NORMALS: patient oriented x3 SENSORIUM/ORIENTATION: Yes alert MENINGEAL SIGNS: Yes no meningeal signs Course 2 Vital Signs: Vital signs: Vital Signs Temperature 98.0 F 09/25/23 23:28 Pulse Rate 105 H 09/26/23 00:04 Respiratory Rate 23 H 09/25/23 23:59 Blood Pressure 111/62 09/25/23 23:59 Pulse Oximetry 96 09/25/23 23:59 Oxygen Delivery Me thod Room Air 09/25/23 23:59 MDM - Arrhythmia/Palpitations Medical Decision Making Patient arrived in A-fib with RVR with a rate of about 155 bpm, he was given a bolus 20 mg Cardizem IV which dropped him down to about 120. Then he was post be put on a drip and given 30 mg oral Cardizem however due to the dizziness in the ER he was only given the oral Cardizem please get him down in the 100 210 range. By the time the IV Cardizem drip was in place patient said he was ready to go with would not stay. He done the same thing with me last time. Plan will be to increase his oral Cardizem and discharge him home. Patient is fully aware that this is not the best treatment and may not work and he may end up back in the ER and admitted. Patient understands this and accepts this risk. Differential Diagnosis Likely artial fibrillation Medical Records I reviewed the patient's medical records. Lab Data I reviewed the patient's lab results. 09/25/23 23:54 09/25/23 23:54 Radiology Impressions Chest X-Ray 09/25/23 23:32 IMPRESSION: No acute findings. Laboratory Results WBC 8.94 10^3/uL (3.29-11.43) 09/25/23 23:54 RBC 4.80 10^6/uL (3.85-5.65) 09/25/23 23:54 Hgb 14.00 g/dL (11.27-16.99) 09/25/23 23:54 Hct 42.1 % (37-53) 09/25/23 23:54 MCV 87.7 fl (82-101) 09/25/23 23:54 MCH 29.2 pg (27-33) 09/25/23 23:54 MCHC 33.3 g/dL (30-55) 09/25/23 23:54 RDW 13.6 % (12.1-15.1) 09/25/23 23:54 Plt Count 227 10^3/cmm (157-399) 09/25/23 23:54 MPV 9.1 fL (7.4-10.4) 09/25/23 23:54 Neut % (Auto) 66.0 % 09/25/23 23:54 Lymph % (Auto) 22.3 % 09/25/23 23:54 [place] % (Auto) 7.6 % 09/25/23 23:54 Eos % (Auto) 3.0 % 09/25/23 23:54 Baso % (Auto) 0.8 % 09/25/23 23:54 Neut # (Auto) 5.90 10^3/uL (1.8-7.7) 09/25/23 23:54 Lymph # (Auto) 2.0 10^3/uL (0.8-4.8) 09/25/23 23:54 [place] # (Auto) 0.7 10^3/uL (0.2-0.9) 09/25/23 23:54 Eos # (Auto) 0.3 10^3/uL (0.0-0.8) 09/25/23 23:54 Baso # (Auto) 0.1 10^3/uL (0.0-0.1) 09/25/23 23:54 Nucleated RBC % (auto) 0 % 09/25/23 23:54 Nucleated RBCs # 0.0 /100WBC 09/25/23 23:54 Sodium 138 mmol/L (136-145) 09/25/23 23:54 Potassium 4.0 mmol/L (3.5-5.1) 09/25/23 23:54 Chloride 102 mmol/L (98-107) 09/25/23 23:54 Carbon Dioxide 22 mmol/L (22-29) 09/25/23 23:54 Anion Gap 18.0 (5-19) 09/25/23 23:54 BUN 6 mg/dL (8-23) L 09/25/23 23:54 Creatinine 0.9 mg/dL (0.7-1.2) 09/25/23 23:54 GFR Calculation 84.7 mL/min (90-130) L 09/25/23 23:54 Glucose 237 mg/dL (65-115) H 09/25/23 23:54 Calculated Osmolality 291 mOsm/kg (285-295) 09/25/23 23:54 Calcium 9.6 mg/dL (8.5-10.5) 09/25/23 23:54 Total Bilirubin 0.3 mg/dL (0.15-1.2) 09/25/23 23:54 AST 44 U/L (0-40) H 09/25/23 23:54 ALT 43 U/L (0-41) H 09/25/23 23:54 Alkaline Phosphatase 158 U/L (40-130) H 09/25/23 23:54 Troponin T Baseline 15 ng/L (0-15) 09/25/23 23:54 Total Protein 7.1 g/dL (6.6-8.7) 09/25/23 23:54 Albumin 4.4 g/dL (3.5-5.2) 09/25/23 23:54 Globulin 2.7 g/dL (1.3-4.6) 09/25/23 23:54 All radiology interpretation(s) finalized by discharge Discharge Plan Discharge Patient Disposition: Home Clinical Impression: Atrial fibrillation Condition: Stable Prescriptions: New diltiazem HCl [Cardizem LA] 420 mg tablet extended release 24 hr 420 mg PO DAILY Qty: 30 0RF Discontinued diltiazem HCl [Matzim LA] 360 mg tablet extended release 24 hr 360 mg PO DAILY Qty: 90 3RF diltiazem HCl 360 mg capsule,extended release 24 hr 360 mg PO DAILY Qty: 30 0RF No Action aspirin [Aspir-81] 81 mg tablet,delayed release (DR/EC) 81 mg PO DAILY metformin 1,000 mg tablet 1,000 mg PO BID rosuvastatin 40 mg tablet 40 mg PO DAILY testosterone cypionate [Depo-Testosterone] 100 mg/mL oil 100 mg SUBCUT Q7D carvedilol 25 mg tablet 25 mg PO BID Qty: 180 3RF aripiprazole [Abilify] 5 mg tablet 5 mg PO DAILY Qty: 30 2RF citalopram [Celexa] 40 mg tablet 40 mg PO DAILY Qty: 30 2RF trazodone 50 mg tablet 100 mg PO .HS PRN (Reason: insomnia) Qty: 60 2RF prazosin 5 mg capsule 5 mg PO .HS Qty: 30 2RF chlorthalidone 25 mg tablet 25 mg PO DAILY Qty: 90 1RF Discharge Orders: Discharge ED (Routine); Ordered 09/26/23 Ordered By: Rik Thomas Referrals: Dunia Prater FNP [Primary Care Provider] - 7-10 days Patient Instructions: Atrial Fibrillation Activity Restrictions/Additional Instructions: You are given IV Cardizem and oral Cardizem. These both help your heart rate decreased but is still not controlled. We will increase your oral Cardizem at home from 360 mg to 420 mg daily. Please follow-up with your family practitioner within next 7 to 10 days for further evaluation and treatment. If your heart rate starts increasing uncontrollably please feel free to return to the ER. Coding Level of Care Code ED Emulsification Operator for Mario Campbell
[2023-09-25] MEDS: dilTIAZem 5 mg/mL SDV 5 mL 20 MG IVP (23:57)
[2023-09-25 23:59] VITALS: BP 111/62; PULSE 113; RESP 23; O2SAT 96
[2023-09-26 00:04] VITALS: PULSE 105
[2023-09-26 00:11] LABS: Basophils # 0.1 10^3/uL (0.0-0.1); Basophils % 0.8 %; Eosinophils # 0.3 10^3/uL (0.0-0.8); Hematocrit 42.1 % (37-53); Lymphocytes % 22.3 %; Mean Corpuscular HGB Conc 33.3 g/dL (30-55); Mean Corpuscular Hemoglobin 29.2 pg (27-33); Mean Corpuscular Volume 87.7 fl (82-101); Mean Platelet Volume 9.1 fL (7.4-10.4); Monocytes # 0.7 10^3/uL (0.2-0.9); Monocytes % 7.6 %; Nucleated Red Blood Cells % 0 %; Platelet Count 227 10^3/cmm (157-399); Red Cell Distribution Width 13.6 % (12.1-15.1); White Blood Count 8.94 10^3/uL (3.29-11.43)
[2023-09-26 00:24] LABS: Troponin(5th) Baseline 15 ng/L (0-15)
[2023-09-26 00:28] LABS: Alanine Aminotransferase 43 U/L (0-41); Albumin Level 4.4 g/dL (3.5-5.2); Alkaline Phosphatase 158 U/L (40-130); Aspartate Amino Transferase 44 U/L (0-40); Blood Urea Nitrogen 6 mg/dL (8-23); Calcium 9.6 mg/dL (8.5-10.5); Carbon Dioxide 22 mmol/L (22-29); Chloride 102 mmol/L (98-107); Creatinine Clr Calc Pharmacy 120.5468; Globulin 2.7 g/dL (1.3-4.6); Glomerular Filtration Rate 84.7 mL/min (90-130); Glucose 237 mg/dL (65-115); Osmolality Calculated 291 mOsm/kg (285-295); Sodium 138 mmol/L (136-145); Total Bilirubin 0.3 mg/dL (0.15-1.2); Total Protein 7.1 g/dL (6.6-8.7)
[2023-09-26] MEDS: dilTIAZem 30 mg Tablet PO (01:08)
--- NOTE | 2023-09-26 01:32 | ECG_ITS ---
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 Measurements Intervals [place] Rate: 121 P: 0 MD: 0 QRS: -23 QRSD: 105 T: 69 QT: 324 QTc: 461 Interpretive Statements ATRIAL FIBRILLATION WITH RAPID VENTRICULAR RESPONSE BORDERLINE LEFT AXIS DEVIATION [QRS AXIS < -20] NONSPECIFIC T-WAVE ABNORMALITY ABNORMAL RHYTHM ECG Compared to ECG 09/25/2023 23:22:44 No significant changes Electronically Signed On 09-27-2023 0:21:37 CDT by Wally Cochran M.D. [id number]
[2023-09-26] MEDS: dilTIAZem 100 MG in sodium chloride 0.9% (add-van) 100 ML IV (02:06)
[2023-09-26 02:56] LABS: Troponin 5 2HR 17.93 ng/L (0-15); Troponin 5 2HR Delta 2.93 ABS# (0-10)
[2023-09-26 03:11] VITALS: BP 152/93; PULSE 86; RESP 16; O2SAT 95
[2023-09-26 03:13] VITALS: BP 152/93; PULSE 86; RESP 16; TEMP 36.7; O2SAT 95
== END 2023-09-26 03:13 | disposition home or self-care (01) ==
PROVIDERS: Emergency Provider Emergency Medicine; PCP Nurse Practitioner Family
DX: I48.20 Chronic atrial fibrillation, unspecified (principal); Z79.84 Long term (current) use of oral hypoglycemic drugs; Z79.82 Long term (current) use of aspirin; Z87.891 Personal history of nicotine dependence; E11.9 Type 2 diabetes mellitus without complications; I10 Essential (primary) hypertension
CPT/HCPCS: 36415; 71045; 80053; 84484; 85025; 93005; 96365; 96375; 99285; J3490

== ENCOUNTER 2024-02-14 08:11 | Outpatient (CLI) | payer MEDICARE, SELFPAY ==
--- NOTE | 2024-02-14 08:20 | CT_ITS ---
WS: [id number] CT chest w con* [id number] HISTORY: LUNG NODULE TECHNIQUE: Axial imaging performed through the thorax. Coronal and sagittal reformats are submitted. All CT scans at [facility] use at least one of these dose optimization techniques: automated exposure control; mA and/or kV adjustment per patient size (includes targeted exams where dose is mat ched to clinical indication); or iterative reconstruction. CONTRAST: Omnipaque 350; 100 mL IV. DLP: 2298.70 mGy COMPARISON: None available. Lungs and central airway: 3 mm nodule RIGHT middle lobe. No mass or pneumonia. Pleura: Normal. No pleural effusion. Heart and pericardium: Normal size heart with no pericardial effusion. Mediastinum and harper: No mediastinum or hilar adenopathy. Vessels: Mild atherosclerosis aorta. No aneurysm. Normal size pulmonary artery. Chest wall and lower neck: No soft tissue masses. Upper abdomen: Small hiatal hernia. Hepatic steatosis. Osseous structures: No destructive process. CT/CT chest w con* [id number] IMPRESSION: 1. 3 mm micronodule RIGHT middle lobe. No further work-up necessary. 2. There are no prior studies for comparison. This study was ordered to follow -up a lung nodule. 3. No mediastinal or hilar adenopathy.
--- NOTE | 2024-02-14 08:51 | CT_ITS ---
WS: [id number] CT ABDOMEN WITH AND WITHOUT CONTRAST (adrenal protocol) HISTORY: ADRENAL MASS Contiguous single phase 2 mm axial imaging performed to the abdomen. Oral contrast has been provided. Coronal and sagittal reformats are submitted. All CT scans at [facility] use at least one of these dose optimization techniques: automated exposure control; mA and/or kV adjustment per patient size (includes targeted exams where dose is matched to clinical indication); or iterative reconstruct ion. IV CONTRAST: Omnipaque 350; 100 mL IV. Oral contrast: No DLP: 2298.70 mGy.cm COMPARISON: None available. Lower thorax: Lung bases are clear. Heart is normal size. Small hiatal hernia. Liver/biliary system: Diffuse hepatic steatosis. Liver is top normal size. No intrahepatic dilatation or mass. Normal portal vein. Gallbladder: Normal. No gallstones or wall thickening. No pericholecystic fluid. Pancreas: Normal size pancreas and pancreatic duct. No adjacent inflammation. Spleen: Normal size spleen. No mass or infarct. Adrenal glands: Minimal thickening of each adrenal gland. Hounsfield units are negative at the area o f thickening. Subcentimeter areas of adrenal gland thickening. Adrenal nodules are too small to ariella cterize by washout values. There is no suspicious mass. Right kidney: Tiny cortical cyst lower pole. No obstruction. Left kidney: Normal. Aorta: Mild atherosclerosis with no aneurysm. Retroaortic LEFT renal vein. Lymphadenopathy: None. Free fluid: None. GI tract: Scattered diverticula in the transverse colon. No obstructive pattern. Abdominal wall: Tiny suprarenal umbilical hernia with herniation of abdominal content. Visualized osseous structures: Unremarkable. CT/CT abdomen wo/w con [id number] IMPRESSION: 1. No prior studies for comparison. 2. Very minimal thickening of each adrenal gland, less than a centimeter. Houn sfield units are low suggesting adenomas. These are really too small to charact erize by washout value. Suspect adenomas or hyperplasia. 3. Hepatic steatosis.
[2024-02-14] MEDS: iohexol 350 mg/mL 500 mL Btl (per mL) IV (09:17)
--- NOTE | 2024-02-14 09:31 | US_ITS ---
WS: [id number] RIGHT UPPER QUADRANT ULTRASOUND HISTORY: Elevated Liver Enzymes COMPARISON: None available. Liver: 20.1 cm in length. Enlarged heterogeneous liver with coarse echotexture. No mass. The entire l iver is not well visualized. Portal Vein: Normal hepatopetal flow with monophasic waveform. Gallbladder: Normally distended gallbladder with no stones or wall thickening. Small amount of gallbl adder sludge is noted. CBD: 0.3 cm Pancreas: Not visualized. Right kidney: 12.6 cm in length. Normal size and echogenicity. No hydronephrosis or mass. Aorta and IVC: Unremarkable abdominal aorta and IVC. No ascites. US/US liver [id number] IMPRESSION: 1. No cholelithiasis. Small amount of gallbladder sludge is noted. 2. Moderate hepatomegaly with hepatic steatosis. 3. No biliary duct dilatation.
== END 2024-02-14 08:12 | disposition home or self-care (01) ==
LOC: RAD 08:14
PROVIDERS: PCP Nurse Practitioner Family; Visit Provider Nurse Practitioner Family
DX: R91.1 Solitary pulmonary nodule (principal); R16.0 Hepatomegaly, not elsewhere classified; K76.0 Fatty (change of) liver, not elsewhere classified; N28.1 Cyst of kidney, acquired; R19.09 Other intra-abdominal and pelvic swelling, mass and lump; K57.90 Diverticulosis of intestine, part unspecified, without perforation or abscess without bleeding; E27.8 Other specified disorders of adrenal gland; Q27.8 Other specified congenital malformations of peripheral vascular system
CPT/HCPCS: 71260; 74170; 76705

== ENCOUNTER 2024-02-20 10:57 | Outpatient (CLI) | payer MEDICARE, SELFPAY | END 2024-02-20 10:58 | disposition home or self-care (01) | LOC: RT 10:57 | PROVIDERS: PCP Nurse Practitioner Family; Visit Provider Nurse Practitioner Family | DX: R91.8 Other nonspecific abnormal finding of lung field (principal) | CPT/HCPCS: 94010; 94726; 94729 ==

== ENCOUNTER 2024-02-24 20:04 | Emergency (ER) | payer MEDICARE, SELFPAY ==
[2024-02-24] VITALS (11 sets, daily range): BP systolic 107–162; BP diastolic 52–95; PULSE 64–78; RESP 12–20; TEMP 36.7; O2SAT 92–96; BMI 36.8
--- NOTE | 2024-02-24 20:27 | USR_ITS ---
PROCEDURE INFORMATION: Exam: US Abdomen, Limited; Right Upper Quadrant Exam date and time: 02/24/2024 10:28 PM Age: 68 years old Clinical indication: Abdominal pain; Generalized; Additional info: Ruq abd pain. Also about midway up R abd. , Ruq abd pain. Also about midway up R abd. Sudden onset after TECHNIQUE: Imaging protocol: Real time ultrasound of the abdomen with image documentation. Limited exam focused on the right upper quadrant. COMPARISON: CT abdomen pelvis w con* [id number] 02/24/2024 9:49 PM FINDINGS: Liver: The liver is enlarged measuring up to 21.8 cm in length. Gallbladder: The gallbladder wall is normal in thickness measuring 3 mm. Biliary ducts: The common bile duct measures 5 mm in diameter. Pancreas: Visualized pancreas is unremarkable. Right kidney: The right kidney measures 12.5 cm in length with no hydronephrosis or renal calculus. US/US gall bladder [id number] IMPRESSION: No cholelithiasis or cholecystitis.
--- NOTE | 2024-02-24 20:30 | W.ED.ABDPA2 ---
HPI - Abdominal Pain General: Chief Complaint: Abdominal Pain Stated Complaint: ABD Pain Time Seen by Provider: 02/24/24 20:08 History of Present Illness: Patient reports about 20 notes after eating dinner had sudden onset of right anterior lateral abdominal pain sharp pressure feeling. Has had it 2 to 3 weeks ago and it resolved, his doctor felt he might need a HIDA scan. He does have a history of a prostate surgery that they went into the abdomen to do it years ago. Last bowel movement today. Some gagging but did not vomit any stomach contacts just prior to arrival. Does have some nausea. No fever or chills. Related Data Home Medications Medication Instructions Recorded Confirmed aspirin 81 mg tablet,delayed 81 mg PO DAILY 10/08/19 07/05/21 release (Aspir-) metformin 1,000 mg tablet 1,000 mg PO BID 10/08/19 07/05/21 rosuvastatin 40 mg tablet 40 mg PO DAILY 10/08/19 07/05/21 testosterone cypionate 100 mg/mL 100 mg SUBCUT Q7D 01/09/22 intramuscular oil (Depo-Testosterone) Previous Rx's Medication Instructions Recorded aripiprazole 5 mg tablet (Abilify) 5 mg PO DAILY #30 tabs 07/05/21 citalopram 40 mg tablet (Celexa) 40 mg PO DAILY #30 tabs 07/05/21 prazosin 5 mg capsule 5 mg PO .HS #30 caps 07/05/21 trazodone 50 mg tablet 100 mg (2 x 50 mg) PO .HS PRN 07/05/21 insomnia #60 tabs chlorthalidone 25 mg tablet 25 mg PO DAILY #90 tabs 08/15/21 carvedilol 25 mg tablet 25 mg PO BID #180 tabs 01/09/22 diltiazem HCl 420 mg 420 mg PO DAILY #30 tabs 09/26/23 tablet,extended release 24 hr (Cardizem LA) ondansetron 4 mg disintegrating 4 mg PO Q6H PRN nausea and 02/24/24 tablet vomiting #20 tabs dicyclomine 20 mg tablet 20 mg PO BID PRN abdominal pain 02/25/24 #30 tabs Allergies Allergy/AdvReac Type Severity Reaction Status Date / Time No Known Allergies Allergy Verified 02/24/24 20:14 Review of Systems General: Reports: 10 or more systems reviewed and unremarkable except in HPI and below PFSH ED PFSH: Medical History Trauma and stressor-related disorder Major depressive disorder, recurrent, moderate Presence of Watchman left atrial appendage closure device Obesity (BMI 35.0-39.9 without comorbidity) KINSEY on CPAP Diabetes HTN (hypertension) Atrial fibrillation Surgical History H/O breast surgery Previous back surgery Status post catheter ablation of atrial fibrillation S/P hip replacement 2019 S/P prostatectomy S/P wrist surgery Family History Other Diabetes Hypertension Denies family history of Stroke Social History Smoking and tobacco/nicotine status: former use of tobacco/nicotine (quit 20 years ago) Quit status (tobacco/nicotine): has quit using Year quit tobacco: 20 years prior Second hand smoke exposure: No Alcohol intake: current Alcohol intake frequency: holidays/special occasions only Substance/Drug Use: never Current gender identity: Male Physical Exam Const: COMMON NORMALS: no acute distress, average body habitus, patient oriented x3, healthy appearing, alert and well nourished GENERAL APPEARANCE: well kempt and well developed HENMT: COMMON NORMALS: normocephalic, atraumatic, external ears normal and moist oral mucous membranes HEAD & SCALP: normocephalic and atraumatic EXTERNAL EAR: Yes external ears normal Eye: COMMON NORMALS: Equal, round and reactive pupils present, EOMs intact bilaterally and conjunctivae normal CONJUNCTIVA: Yes conjunctivae normal PUPIL: Yes Equal, round and reactive pupils present Neck/C-Spine: COMMON NORMALS: full ROM, no lymphadenopathy and supple Chest: CHEST: Yes Symmetrical chest wall rise and No Surgical scars present (Chest) Resp: COMMON NORMALS: normal respiratory effort, No retractions, No use of accessory muscles and clear to auscultation bilaterally AUSCULTATION: clear to auscultation bilaterally Cardio: COMMON NORMALS: regular rate, regular rhythm, S1 normal heart sound present, S2 normal heart sound present, No gallops present (Cardio), No clicks present (Cardio), No murmurs present (Cardio) and No rub (Cardio) RATE: regular rate RHYTHM: regular rhythm HEART SOUNDS: S1 normal heart sound present, S2 normal heart sound present and no murmurs PERIPHERAL PULSES: other (Radial pulses 2+ and symmetric) GI: COMMON NORMALS: Soft to palpation, non-tender and no masses INSPECTION: No abdominal distension PALPATION: Yes Soft to palpation, Yes Tenderness to palpation present (GI) (R mid afternoon/ neg benitez sign. ), No Guarding due to palpation present (GI) and No Rebound tenderness present : COMMON NORMALS: Yes no CVA tenderness BLADDER/KIDNEY EXAM: Yes no CVA tenderness Back/Pelvis: COMMON NORMALS: no CVA tenderness Extremity: COMMON NORMALS: normal to inspection, full ROM, capillary refill normal and no clubbing, cyanosis or edema Neuro: COMMON NORMALS: patient oriented x3 SENSORIUM/ORIENTATION: Yes alert Psych: APPEARANCE: Yes well kempt Skin: COMMON NORMALS: no rashes or lesions noted, no wounds, turgor normal and no jaundice GENERAL SKIN EXAM: no rashes or lesions noted and turgor normal Course Vital Signs: Vital signs: Vital Signs Temperature 98.0 F 02/24/24 20:12 Pulse Rate 64 02/24/24 23:30 Respiratory Rate 16 02/24/24 22:30 Blood Pressure 144/90 02/24/24 23:53 Pulse Oximetry 94 02/24/24 23:30 Oxygen Delivery Me thod Room Air 02/24/24 23:30 MDM - Abdominal Pain Medical Decision Making Personally reviewed the CT and I see no acute abnormality except for maybe some very mild stranding in the right lateral area however no identifiable source and extremely mild could be an over read. Ultra images also personally reviewed and I see no acute abnormality. Rad read concurs. Patient came to follow-up primary care continue with HIDA scan as ordered. Will provide some medicine for pain and nausea if it recurs. Differential Diagnosis Likely abdominal pain, acute appendicitis, calculus of kidney, constipation, diverticulitis, gastroenteritis and small bowel obstruction Medical Records I reviewed the patient's medical records. Lab Data I reviewed the patient's lab results. 02/24/24 20:23 02/24/24 20:23 Labs/Radiology: Radiology Impressions Gallbladder Ultrasound 02/24/24 20:27 IMPRESSION: No cholelithiasis or cholecystitis. Abdomen/Pelvis CT 02/24/24 21:38 IMPRESSION: 1. No bowel obstruction or inflammatory process associated with the bowel. 2. No free air or significant free fluid in the abdomen or pelvis. 3. No evidence of appendicitis. Laboratory Results WBC 8.98 10^3/uL (3.29-11.43) 02/24/24 20:23 RBC 4.73 10^6/uL (3.85-5.65) 02/24/24 20:23 Hgb 14.10 g/dL (11.27-16.99) 02/24/24 20:23 Hct 41.7 % (37-53) 02/24/24 20:23 MCV 88.2 fl (82-101) 02/24/24 20: MCH 29.8 pg (27-33) 02/24/24 20: MCHC 33.8 g/dL (30-55) 02/24/24 20:23 RDW 12.3 % (12.1-15.1) 02/24/24 20:23 Plt Count 230 10^3/cmm (157-399) 02/24/24 20:23 MPV 10.2 fL (7.4-10.4) 02/24/24 20:23 Neut % (Auto) 68.5 % 02/24/24 20: Lymph % (Auto) 21.5 % 02/24/24 20: Summers % (Auto) 6.0 % 02/24/24 20: Eos % (Auto) 2.7 % 02/24/24 20: Baso % (Auto) 0.9 % 02/24/24: Neut # (Auto) 6.15 10^3/uL (1.8-7.7) 02/24/24 20: Lymph # (Auto) 1.9 10^3/uL (0.8-4.8) 02/24/24: Summers # (Auto) 0.5 10^3/uL (0.2-0.9) 02/24/24 20: Eos # (Auto) 0.2 10^3/uL (0.0-0.8) 02/24/24 20: Baso # (Auto) 0.1 10^3/uL (0.0-0.1) 01/19/25 20:23 Nucleated RBC % (auto) 0 % 02/24/24 20:23 Nucleated RBCs # 0.0 /100WBC 02/24/24 20:23 PT 12.40 SECONDS (12.1-14.9) 02/24/24 20:23 INR 0.86 (0.8-1.2) 02/24/24 20:23 APTT 29.3 SECONDS (23.9-36.7) 02/24/24 20:23 Sodium 135 mmol/L (136-145) L 02/24/24 20:23 Potassium 3.8 mmol/L (3.5-5.1) 02/24/24 20:23 Chloride 96 mmol/L (98-107) L 02/24/24 20:23 Carbon Dioxide 25 mmol/L (22-29) 02/24/24 20:23 Anion Gap 17.8 (5-19) 02/24/24 20:23 BUN 7 mg/dL (8-23) L 02/24/24 20:23 Creatinine 1.0 mg/dL (0.7-1.2) 02/24/24 20:23 GFR Calculation 74.8 mL/min (90-130) L 02/24/24 20:23 Glucose 159 mg/dL (65-115) H 02/24/24 20:23 Calculated Osmolality 281 mOsm/kg (285-295) L 02/24/24 20:23 Calcium 9.9 mg/dL (8.5-10.5) 02/24/24 20:23 Total Bilirubin 0.3 mg/dL (0.15-1.2) 02/24/24 20:23 AST 59 U/L (0-40) H 02/24/24 20:23 ALT 46 U/L (0-41) H 02/24/24 20:23 Alkaline Phosphatase 149 U/L (40-130) H 02/24/24 20:23 Total Protein 7.0 g/dL (6.6-8.7) 02/24/24 20:23 Albumin 4.2 g/dL (3.5-5.2) 02/24/24 20:23 Globulin 2.8 g/dL (1.3-4.6) 02/24/24 20:23 Lipase 19 U/L (13-60) 02/24/24 20:23 Urine Color Yellow (Yellow) 02/24/24 20:51 Urine Appearance Clear (CLEAR) 02/24/24 20:51 Urine pH 7.5 (5-7) 02/24/24 20:51 Ur Specific [place] 1.007 (1.005-1.030) 02/24/24 20:51 Urine Protein Negative (Negative) 02/24/24 20:51 Urine Glucose (UA) Negative (Normal) 02/24/24 20:51 Urine Ketones Negative (Negative) 02/24/24 20:51 Urine Blood Negative (Negative) 02/24/24 20:51 Urine Nitrate Negative (Negative) 02/24/24 20:51 Urine Bilirubin Negative (Negative) 02/24/24 20:51 Urine Urobilinogen 1.0 mg/dL (Negative) 02/24/24 20:51 Ur Leukocyte Esterase Negative (Negative) 02/24/24 20:51 Urine RBC 0-2 /hpf (0-2) 02/24/24 20:51 Urine WBC 0-5 /hpf (0-5) 02/24/24 20:51 Ur Squamous Epith Cells 0-5 /hpf (0-5) 02/24/24 20:51 Amorphous Sediment Not Reportable 02/24/24 20:51 Urine Bacteria None seen /hpf (NONE) 02/24/24 20:51 Hyaline Casts 0-4 /lpf H 02/24/24 20:51 All radiology interpretation(s) finalized by discharge ED provider radiology interpretation(s): see mdm Discharge Plan Discharge Patient Disposition: Home Clinical Impression: Intermittent right upper quadrant abdominal pain, Right lateral abdominal pain Condition: Stable Prescriptions: New ondansetron 4 mg tablet,disintegrating 4 mg PO Q6H PRN (Reason: nausea and vomiting) Qty: 20 0RF dicyclomine 20 mg tablet 20 mg PO BID PRN (Reason: abdominal pain) Qty: 30 0RF No Action aspirin [Aspir-81] 81 mg tablet,delayed release (DR/EC) 81 mg PO DAILY metformin 1,000 mg tablet 1,000 mg PO BID rosuvastatin 40 mg tablet 40 mg PO DAILY testosterone cypionate [Depo-Testosterone] 100 mg/mL oil 100 mg SUBCUT Q7D carvedilol 25 mg tablet 25 mg PO BID Qty: 180 3RF aripiprazole [Abilify] 5 mg tablet 5 mg PO DAILY Qty: 30 2RF citalopram [Celexa] 40 mg tablet 40 mg PO DAILY Qty: 30 2RF trazodone 50 mg tablet 100 mg PO .HS PRN (Reason: insomnia) Qty: 60 2RF prazosin 5 mg capsule 5 mg PO .HS Qty: 30 2RF chlorthalidone 25 mg tablet 25 mg PO DAILY Qty: 90 1RF Cardizem LA 420 mg tablet extended release 24 hr 420 mg PO DAILY Qty: 30 0RF Discharge Orders: Discharge ED (Routine); Ordered 02/25/24 Ordered By: Francis Sifuentes Referrals: Dunia Prater FNP [Primary Care Provider] - Discharge Diet: Low Fat Discharge Activity: Resume usual activity Patient Instructions: Low Fat Diet (ED), Abdominal Pain (ED) Coding Level of Care Code ED Industrial Controller for Mario Campbell
[2024-02-24 20:43] LABS: INR 0.86 (0.8-1.2); Partial Thromboplastin Time 29.3 SECONDS (23.9-36.7)
[2024-02-24] MEDS: ondansetron 2 mg/ML SDV 2 mL 4 MG IVP (20:45)
[2024-02-24] MEDS: morphine 4 mg/mL SDV 1 mL IVP ×2 (20:46→22:17)
[2024-02-24 20:49] LABS: Alanine Aminotransferase 46 U/L (0-41); Albumin Level 4.2 g/dL (3.5-5.2); Alkaline Phosphatase 149 U/L (40-130); Anion Gap 17.8 (5-19); Aspartate Amino Transferase 59 U/L (0-40); Blood Urea Nitrogen 7 mg/dL (8-23); Calcium 9.9 mg/dL (8.5-10.5); Carbon Dioxide 25 mmol/L (22-29); Chloride 96 mmol/L (98-107); Creatinine Clr Calc Pharmacy 107.1191; Globulin 2.8 g/dL (1.3-4.6); Glomerular Filtration Rate 74.8 mL/min (90-130); Glucose 159 mg/dL (65-115); Lipase 19 U/L (13-60); Osmolality Calculated 281 mOsm/kg (285-295); Potassium 3.8 mmol/L (3.5-5.1); Sodium 135 mmol/L (136-145); Total Bilirubin 0.3 mg/dL (0.15-1.2)
[2024-02-24 20:55] LABS: Basophils # 0.1 10^3/uL (0.0-0.1); Basophils % 0.9 %; Eosinophils # 0.2 10^3/uL (0.0-0.8); Eosinophils % 2.7 %; Hematocrit 41.7 % (37-53); Lymphocytes # 1.9 10^3/uL (0.8-4.8); Lymphocytes % 21.5 %; Mean Corpuscular HGB Conc 33.8 g/dL (30-55); Mean Corpuscular Hemoglobin 29.8 pg (27-33); Mean Corpuscular Volume 88.2 fl (82-101); Mean Platelet Volume 10.2 fL (7.4-10.4); Monocytes # 0.5 10^3/uL (0.2-0.9); Neutrophils # 6.15 10^3/uL (1.8-7.7); Neutrophils % 68.5 %; Nucleated Red Blood Cells % 0 %; Platelet Count 230 10^3/cmm (157-399); Red Blood Count 4.73 10^6/uL (3.85-5.65); Red Cell Distribution Width 12.3 % (12.1-15.1); White Blood Count 8.98 10^3/uL (3.29-11.43)
[2024-02-24 21:12] LABS: Bacteria Urine None Seen /hpf; Hyaline Casts Urine 0-4 /lpf; RBC Urine 0-2 /hpf (0-2); Squamous Epithelial Cell Urine 0-5 /hpf (0-5); WBC Urine 0-5 /hpf (0-5)
[2024-02-24 21:35] LABS: Add Urine Microscopic? YES; Bilirubin Urine Negative (Negative); Blood Urine Negative (Negative); Glucose Urine UA Negative (Normal); Ketones Urine Negative (Negative); Leukocyte Esterase Urine Negative (Negative); Nitrate Urine Negative (Negative); Protein Urine Negative (Negative); Specific Gravity, Urine 1.007 (1.005-1.030); Urine Appearance Clear (CLEAR); Urine Color Yellow (Yellow); pH Urine 7.5 (5-7)
--- NOTE | 2024-02-24 21:38 | CTR_ITS ---
PROCEDURE INFORMATION: Exam: CT Abdomen And Pelvis With Contrast Exam date and time: 02/24/2024 9:49 PM Age: 68 years old Clinical indication: Abdominal pain; Localized; Right; Prior surgery; Surgery date: 6+ months; Surgery type: Prostatectomy; Additional info: R lateral abdominal pain TECHNIQUE: Imaging protocol: Computed tomography of the abdomen and pelvis with contrast. Radiation optimization: All CT scans at this facility use at least one of these dose optimization techniques: automated exposure control; mA and/or kV adjustment per patient size (includes targeted exams where dose is matched to clinical indication); or iterative reconstruction. Contrast material: OMNI 350; Contrast volume: 100 ml; Contrast route: INTRAVENOUS (IV); COMPARISON: CT abdomen wo/w con [id number] 02/14/2024 8:54 AM RADIATION DOSE METRICS: Total DLP (mGy-cm): 1252.43 FINDINGS: Liver: Normal. No mass. Gallbladder and biliary ducts: Normal. No calcified stones. No ductal dilation. Pancreas: Normal. No ductal dilation. Spleen: Normal. No splenomegaly. Adrenal glands: Normal. No mass. Kidneys and ureters: Normal. No hydronephrosis. Stomach and bowel: Unremarkable. No obstruction. No mucosal thickening. Appendix: No evidence of appendicitis. Intraperitoneal space: Unremarkable. No free air. No significant fluid collection. Vasculature: Unremarkable. No abdominal aortic aneurysm. Lymph nodes: Unremarkable. No enlarged lymph nodes. Urinary bladder: Unremarkable as visualized. Reproductive: Unremarkable as visualized. Bones/joints: Unremarkable. No acute fracture. Soft tissues: Unremarkable. CT/CT abdomen pelvis w con* [id number] IMPRESSION: 1. No bowel obstruction or inflammatory process associated with the bowel. 2. No free air or significant free fluid in the abdomen or pelvis. 3. No evidence of appendicitis.
[2024-02-24] MEDS: iohexol 350 mg/mL 500 mL Btl (per mL) IV (22:01)
[2024-02-24] MEDS: metoclopramide 5 mg/mL SDV 2 mL 10 MG IVP (22:06)
[2024-02-25 00:26] VITALS: BP 152/89; PULSE 72; RESP 18; O2SAT 94
== END 2024-02-25 00:35 | disposition home or self-care (01) ==
PROVIDERS: Emergency Provider Emergency Medicine; PCP Nurse Practitioner Family
DX: R10.11 Right upper quadrant pain (principal); Z87.891 Personal history of nicotine dependence; Z79.82 Long term (current) use of aspirin; Z79.84 Long term (current) use of oral hypoglycemic drugs; E11.9 Type 2 diabetes mellitus without complications; I10 Essential (primary) hypertension
CPT/HCPCS: 36415; 74177; 76705; 80053; 81001; 83690; 85025; 85610; 85730; 96374; 96375; 96376; 99285; J2270; J2405; J2765

== ENCOUNTER 2024-03-04 07:26 | Outpatient (CLI) | payer MEDICARE, SELFPAY ==
--- NOTE | 2024-03-04 07:49 | NM_ITS ---
WS: [id number] NUCLEAR MEDICINE HIDA SCAN WITH GALLBLADDER EJECTION FRACTION HISTORY: RUQ PAIN COMPARISON: Gallbladder ultrasound 02/24/2024 TECHNIQUE: The patient was intravenously injected with 7.7 mCi of TC99m Mebrofenin. Immediate imaging over the right upper quadrant was followed by 5 minute image and additional images for a total of 60 minutes. Normal uptake of radiotracer throughout the liver. Activity identified in the gallbladder at 10 minutes and well distended by 60 minutes. Activity in the proximal small bowel was seen by 40 minutes. Good washout of the radiotracer from the liver by 60 minutes. The patient then drank 8 ounces of Ensure Plus. Ejection fraction at 60 minutes was 77%. Normal GB ej ection fraction is 35-75%. Post fatty meal symptoms: None. NM/NM hepatobiliary w phar* [id number] IMPRESSION: 1. Normal HIDA scan. 2. Normal gallbladder ejection fraction.
== END 2024-03-04 07:27 | disposition home or self-care (01) ==
LOC: RAD 07:27
PROVIDERS: PCP Nurse Practitioner Family; Visit Provider Nurse Practitioner Family
DX: R10.9 Unspecified abdominal pain (principal)
CPT/HCPCS: 78227; A9537